=== PATIENT | male | born 1935 | race Caucasian/White ===

== ENCOUNTER → 2016-09-18 | Outpatient (REF) | payer MEDICARE, OTHER ==
[~2016-09-18] MED LIST: /LANS30GR; /LANS30GR OR; /TAMS4CA; /TAMS4CA OR; ACET50TAOT PO; ACET65TA OR; ALLO300T; ALLO300T OR; ASPI81TA7 PO; ASPI81TA85 PO; BACITAB3 PO; BIMA01SOL OU; CALCCHW12; CALCCHW12 OR; CITRTAB19 PO; CLEO150C PO; COLA100C2; FEXO180T58 PO; FINA5TAB2 PO; LANS30CA PO; MECL25TA2 OR; MEMA1TAB2 PO; MIRT15TA3 PO; MULTIVIT; MULTIVIT OR; NAME5TAB13 PO; PERC5TAB8; POTA2TAB2 PO; POTA75TA; POTA99TA PO; POTASSIUM GLUCONATE OR; PROS5TAB; PROS5TAB OR; RECLAST; REMERON OR; SIMB1SUS OU; SUSTENEX OR; VITA20008 PO; VITAMIN D; VITAMIN D-3 OR; VITMTA PO; XALATAN; ZYLO300T4 PO
[2016-09-18 16:56] LABS: BASO % 0.3 % (0.0-1.0); EOS # 0.1 K/mm3 (0.0-0.50); EOS % 1.5 % (0.0-3.0); LARGE UNSTAINED CELL # 0.2 K/mm3 (0.0-0.4); LYMPH # 1.2 K/mm3 (1.5-4.5); LYMPH % 20.1 % (24.0-44.0); MEAN CORPUSCULAR HEMOGLOBIN 30.7 pg (27.0-33.0); MEAN CORPUSCULAR HGB CONC 32.2 g/dl (32.0-36.5); MEAN CORPUSCULAR VOLUME 95.4 fl (80.0-96.0); MONO # 0.4 K/mm3 (0.0-0.8); NEUTROPHILS # 4.1 K/mm3 (1.8-7.7); NEUTROPHILS % 69.2 % (36.0-66.0); PLATELET COUNT, AUTOMATED 167 k/mm3 (150-450); RED CELL DISTRIBUTION WIDTH 13.6 % (11.5-14.5)
[2016-09-18 21:05] LABS: ALBUMIN 4.3 GM/DL (3.2-5.2); ALBUMIN/GLOBULIN RATIO 1.54 (1.00-1.93); BILIRUBIN,TOTAL 0.3 MG/DL (0.2-1.0); CALCIUM LEVEL 8.9 MG/DL (8.8-10.2); CREATININE FOR GFR 1.35 MG/DL (0.70-1.30); GLOMERULAR FILTRATION RATE 54.4 (>42); POTASSIUM SERUM 4.6 MEQ/L (3.5-5.1); THYROXINE (T4) 7.6 UG/DL (4.5-12.0); TOTAL PROTEIN 7.1 GM/DL (6.4-8.2); URIC ACID 3.6 MG/DL (3.5-7.2)
== END ==
LOC: M SFHCCLAY 09:26
PROVIDERS: ATTEND Family Medicine
DX: D64.9 Anemia, unspecified (principal); E55.9 Vitamin D deficiency, unspecified; M10.9 Gout, unspecified; E03.8 Other specified hypothyroidism
CPT/HCPCS: 80053; 82652; 83540; 84436; 84443; 84480; 84550; 85025; G0463

== ENCOUNTER → 2016-11-27 | Outpatient (REF) | payer MEDICARE, OTHER ==
[~2016-11-27] MED LIST changes: +ASPI1TAB15 PO; -ASPI81TA7 PO; +BACITAB PO; -BACITAB3 PO
[2016-11-27 19:06] LABS: MEAN CORPUSCULAR HEMOGLOBIN 31.7 pg (27.0-33.0); MEAN CORPUSCULAR HGB CONC 33.8 g/dl (32.0-36.5); MEAN CORPUSCULAR VOLUME 93.5 fl (80.0-96.0); RED CELL DISTRIBUTION WIDTH 13.7 % (11.5-14.5); WHITE BLOOD COUNT 6.2 K/mm3 (4.0-10.0)
[2016-11-27 19:16] LABS: ALBUMIN 3.7 GM/DL (3.2-5.2); ALBUMIN/GLOBULIN RATIO 1.19 (1.00-1.93); ALKALINE PHOSPHATASE 78 U/L (45-117); ALT/SGPT 24 U/L (12-78); ANION GAP 9 MEQ/L (8-16); AST/SGOT 23 U/L (15-37); BILIRUBIN,TOTAL 0.3 MG/DL (0.2-1.0); BLOOD UREA NITROGEN 28 MG/DL (7-18); CALCIUM LEVEL 8.8 MG/DL (8.8-10.2); CARBON DIOXIDE LEVEL 27 MEQ/L (21-32); CHLORIDE LEVEL 103 MEQ/L (98-107); CREATININE FOR GFR 1.21 MG/DL (0.70-1.30); GLOMERULAR FILTRATION RATE > 60.0 (>42); GLUCOSE, FASTING 100 MG/DL (83-110); POTASSIUM SERUM 4.3 MEQ/L (3.5-5.1); SODIUM LEVEL 139 MEQ/L (136-145); TOTAL PROTEIN 6.8 GM/DL (6.4-8.2)
== END ==
LOC: M SFHCCLAY 13:56
PROVIDERS: ATTEND Nurse Practitioner
DX: R53.83 Other fatigue (principal); E03.9 Hypothyroidism, unspecified
CPT/HCPCS: 80053; 84443; 85027; 93005; G0463

== ENCOUNTER → 2017-04-06 | Outpatient (CLI) | payer MEDICARE, OTHER ==
--- NOTE | 2017-04-06 09:48 | REP ---
PA and lateral chest three views two PA and single lateral views: Comparison is 01/10/2016. The patient has a history of right upper lobectomy, esophagectomy and gastric pull-through: There is volume loss in the right hemithorax as a consequence of these procedures. This is unchanged. There are numerous surgical clips in the right paramediastinal area and in the left hilus. These are unchanged. There are no acute infiltrates or effusions. Cardiac size is normal, unchanged. The sheldon, mediastinum, bony thorax are unchanged. 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 There is diffuse demineralization. Impression: Chronic stable findings as described. No new or acute cardiopulmonary findings. Signed by Chuck Moore MD 04/06/2017 09:40 A
== END ==
LOC: M SMT 09:09
PROVIDERS: ATTEND Internal Medicine Pulmonary Disease
DX: R93.8 Abnormal findings on diagnostic imaging of other specified body structures (principal)

== ENCOUNTER → 2017-11-06 | Outpatient (REF) | payer MEDICARE, OTHER ==
[2017-11-06 17:07] LABS: BASO % 0.6 % (0.0-1.0); EOS # 0.1 10^3/uL (0.0-0.50); EOS % 1.5 % (0.0-3.0); HEMATOCRIT 39.8 % (42.0-52.0); HEMOGLOBIN 12.8 g/dl (13.5-17.5); IMMATURE GRANULOCYTE % 0.7 % (0-3.0); LYMPH # 1.3 10^3/uL (1.5-4.5); LYMPH % 19.3 % (24.0-44.0); MEAN CORPUSCULAR HEMOGLOBIN 31.1 pg (27.0-33.0); MEAN CORPUSCULAR HGB CONC 32.2 g/dl (32.0-36.5); MEAN CORPUSCULAR VOLUME 96.6 fl (80.0-96.0); MONO # 0.5 10^3/uL (0.0-0.8); MONO % 7.8 % (0.0-5.0); NEUTROPHILS # 4.7 10^3/uL (1.8-7.7); NEUTROPHILS % 70.1 % (36.0-66.0); PLATELET COUNT, AUTOMATED 157 10^3/uL (150-450); RED BLOOD COUNT 4.12 10^6/uL (4.30-6.10); RED CELL DISTRIBUTION WIDTH 13.9 % (11.5-14.5); WHITE BLOOD COUNT 6.7 10^3/uL (4.0-10.0)
[2017-11-06 17:16] LABS: ALBUMIN 3.9 GM/DL (3.2-5.2); ALBUMIN/GLOBULIN RATIO 1.34 (1.00-1.93); ALKALINE PHOSPHATASE 72 U/L (45-117); ALT/SGPT 28 U/L (12-78); ANION GAP 8 MEQ/L (8-16); AST/SGOT 20 U/L (7-37); BILIRUBIN,TOTAL 0.4 MG/DL (0.2-1.0); BLOOD UREA NITROGEN 35 MG/DL (7-18); CALCIUM LEVEL 8.5 MG/DL (8.8-10.2); CARBON DIOXIDE LEVEL 26 MEQ/L (21-32); CHLORIDE LEVEL 107 MEQ/L (98-107); GLOMERULAR FILTRATION RATE 51.9 (>35); GLUCOSE, FASTING 97 MG/DL (70-100); IRON (FE) 100 UG/DL (65-175); POTASSIUM SERUM 4.8 MEQ/L (3.5-5.1); SODIUM LEVEL 141 MEQ/L (136-145); TOTAL PROTEIN 6.8 GM/DL (6.4-8.2); URIC ACID 2.8 MG/DL (3.5-7.2)
== END ==
LOC: M SFHCCLAY 10:56
DX: I47.1 Supraventricular tachycardia (principal); D64.9 Anemia, unspecified; M10.9 Gout, unspecified
CPT/HCPCS: 83540

== ENCOUNTER → 2018-04-02 | Outpatient (CLI) | payer MEDICARE, OTHER | LOC: M CLY 08:58 | DX: Z85.118 Personal history of other malignant neoplasm of bronchus and lung (principal) | CPT/HCPCS: 71046 ==

== ENCOUNTER → 2018-10-19 | Outpatient (CLI) | payer MEDICARE, OTHER ==
[~2018-10-19] MED LIST changes: -/TAMS4CA; -/TAMS4CA OR; +ACET500T15 PO; -ACET50TAOT PO; +FLOM0.4C39; +FLOM0.4C39 OR; -ZYLO300T4 PO; +ZYLO300T6 PO
--- NOTE | 2018-10-19 16:10 | REP ---
HISTORY: Dyspnea. COMPARISON: Multiple, the latest 04/02/2018. Once again, there are chronic lung field changes with fibrosis and postoperative changes along with chronic volume loss on the right, all stable. There may be a new developing opacity in the left mid lung zone which appears to be in the anterior segment of the left upper lobe as there is some increased density in the anterior retrosternal clear space seen on the lateral view. There is no change in the osseous structures. IMPRESSION: Possible acute change superimposed upon chronic change in the left lung as described above. Chest CT is warranted.
== END ==
LOC: M CLY 14:18
PROVIDERS: ATTEND Family Medicine
DX: R91.8 Other nonspecific abnormal finding of lung field (principal); R06.02 Shortness of breath; R53.83 Other fatigue; D64.9 Anemia, unspecified; N50.9 Disorder of male genital organs, unspecified
CPT/HCPCS: 71046; 80053; 83540; 84436; 84443; 84480; 85025; 86780; G0463

== ENCOUNTER → 2018-10-19 | Outpatient (REF) | payer MEDICARE, OTHER ==
[2018-10-20 11:33] LABS: BASO % 0.4 % (0.0-1.0); EOS # 0.1 10^3/uL (0.0-0.50); HEMATOCRIT 43.7 % (42.0-52.0); HEMOGLOBIN 13.8 g/dl (13.5-17.5); LYMPH # 1.3 10^3/uL (1.5-4.5); LYMPH % 13.6 % (24.0-44.0); MEAN CORPUSCULAR HEMOGLOBIN 30.8 pg (27.0-33.0); MEAN CORPUSCULAR HGB CONC 31.6 g/dl (32.0-36.5); MEAN CORPUSCULAR VOLUME 97.5 fl (80.0-96.0); MONO # 0.7 10^3/uL (0.0-0.8); MONO % 6.8 % (0.0-5.0); NEUTROPHILS # 7.4 10^3/uL (1.8-7.7); NEUTROPHILS % 77.6 % (36.0-66.0); PLATELET COUNT, AUTOMATED 267 10^3/uL (150-450); RED BLOOD COUNT 4.48 10^6/uL (4.30-6.10); WHITE BLOOD COUNT 9.6 10^3/uL (4.0-10.0)
[2018-10-20 11:51] LABS: ALBUMIN 3.8 GM/DL (3.2-5.2); ALT/SGPT 21 U/L (12-78); BILIRUBIN,TOTAL 0.4 MG/DL (0.2-1.0); BLOOD UREA NITROGEN 32 MG/DL (7-18); CALCIUM LEVEL 9.2 MG/DL (8.8-10.2); CARBON DIOXIDE LEVEL 30 MEQ/L (21-32); CHLORIDE LEVEL 103 MEQ/L (98-107); CREATININE FOR GFR 1.22 MG/DL (0.70-1.30); GLOMERULAR FILTRATION RATE > 60.0 (>35); GLUCOSE, FASTING 119 MG/DL (70-100); IRON (FE) 34 UG/DL (65-175); POTASSIUM SERUM 4.3 MEQ/L (3.5-5.1); SODIUM LEVEL 137 MEQ/L (136-145); THYROXINE (T4) 7.7 UG/DL (4.5-12.0); TOTAL PROTEIN 6.6 GM/DL (6.4-8.2)
[2018-10-20 12:17] LABS: TOTAL T3 57.3 NG/DL (60.0-181.0)
== END ==
LOC: M SFHCCLAY 14:06
PROVIDERS: ATTEND Family Medicine
DX: R06.02 Shortness of breath (principal); R53.83 Other fatigue; D64.9 Anemia, unspecified; N50.9 Disorder of male genital organs, unspecified

== ENCOUNTER → 2018-10-25 | Outpatient (CLI) | payer MEDICARE, OTHER ==
[~2018-10-25] MED LIST changes: +D200CAP2 PO; +ISOVUE-370 76% 100ML VIAL (Q9967) As Ordered ONE; +LEVO25TA5 PO; +LEVO50TA5 PO; +METO25TA4 PO; +METO37.5 PO; +REME15TA PO
--- NOTE | 2018-10-26 08:01 | REP ---
CT of the chest with IV contrast for follow-up of abnormal PA and lateral plain film study dated 10/19/2018. There is also a comparison chest CT dated 07/02/2011. On the comparison PA and lateral plain film study there was a new developing opacity in the left mid lung zone extending into the anterior left lung. The patient has a known right upper lobectomy and known esophagectomy with gastric pull-through. This is unchanged from the prior CT. On the prior CT. There is a hiatal hernia containing loops of transverse colon. This hiatal hernia has decreased in size. The there are numerous lung nodules bilaterally as a distinct interval change compatible with metastases. The largest lung nodules anterolaterally in the lungs, corresponding to the density on recent plain films. There is a [id number]-[id number] left pleural effusion as an interval change. On the previous CT there was a 3.8 cm cyst in the anterior mediastinum to the right of midline. This cyst measures 3.7 cm. There is bilateral hilar lymph node enlargement as an interval change. There is a a 1.6 cm enlarged aorticopulmonic window mediastinal lymph node as an interval change. There is an enlarged at 19 mm node suzanne-lateral to the heart on image 50. In the upper abdomen there is a 12 mm right adrenal nodule. Impression: Numerous new irregular lung nodules bilaterally compatible with metastases. New right adrenal nodule. New opyogcvd-yb-bvucs left pleural effusion. New bilateral hilar and mediastinal lymph node enlargement. Chronic postsurgical changes. Hiatal hernia containing loops of transverse colon, decreased in size. Electronically Signed by Chuck Moore MD 10/26/2018 07:52 A
== END ==
LOC: M RAD 17:22
PROVIDERS: ATTEND Family Medicine
DX: R91.8 Other nonspecific abnormal finding of lung field (principal); E27.9 Disorder of adrenal gland, unspecified; J90 Pleural effusion, not elsewhere classified; R59.0 Localized enlarged lymph nodes; K44.9 Diaphragmatic hernia without obstruction or gangrene
CPT/HCPCS: 71260; Q9967

== ENCOUNTER 2018-11-15 07:20 | Emergency (ER) | payer MEDICARE, OTHER ==
[~2018-11-15] VITALS: Ht 182.9 cm; Wt 84.1 kg
[~2018-11-15 07:20] MED LIST changes: -D200CAP2 PO; -ISOVUE-370 76% 100ML VIAL (Q9967) As Ordered ONE; -LEVO25TA5 PO; -LEVO50TA5 PO; -METO25TA4 PO; -METO37.5 PO; -REME15TA PO
[2018-11-15] MEDS ORDERED: IPRATROPIUM 0.5MG/ALBUTEROL 2.5MG INH SOL UD 3ML (DUONEB)(J7620) NEB ONE (07:30)
[2018-11-15] MEDS ORDERED: ALBUTEROL SULFATE 2.5 MG/0.5 ML INH NEB SOLN INH ONE (07:30)
[2018-11-15] MEDS ORDERED: methylPREDNISolone INJ 125 MG/2 ML VIAL (J2930) IV ONE (07:30)
[2018-11-15 07:45] LABS: ABG BASE EXCESS 1.9 (-2.0-2.0); ABG HCO3 26.9 MEQ/L (22.0-26.0); ABG O2 SATURATION 95.2 % (95.0-99.0); ABG PARTIAL PRESSURE CO2 43.4 mmHg (35.0-45.0); ABG STANDARD HCO3 26.1 MEQ/L (22.0-26.0); ABG TOTAL CO2 28.2 MEQ/L (23.0-31.0)
[2018-11-15 08:04] LABS: BASO % 0.2 % (0.0-1.0); EOS # 0.1 10^3/uL (0.0-0.50); EOS % 0.5 % (0.0-3.0); HEMATOCRIT 45.6 % (42.0-52.0); HEMOGLOBIN 14.9 g/dl (13.5-17.5); LYMPH # 0.7 10^3/uL (1.5-4.5); LYMPH % 5.6 % (24.0-44.0); MEAN CORPUSCULAR HGB CONC 32.7 g/dl (32.0-36.5); MEAN CORPUSCULAR VOLUME 94.8 fl (80.0-96.0); MONO # 0.8 10^3/uL (0.0-0.8); MONO % 6.4 % (0.0-5.0); NEUTROPHILS # 10.6 10^3/uL (1.8-7.7); NEUTROPHILS % 85.8 % (36.0-66.0); PLATELET COUNT, AUTOMATED 294 10^3/uL (150-450); RED BLOOD COUNT 4.81 10^6/uL (4.30-6.10); WHITE BLOOD COUNT 12.4 10^3/uL (4.0-10.0)
[2018-11-15] MEDS ORDERED: METO37.5 PO (08:06)
[2018-11-15] MEDS ORDERED: LEVO50TA5 PO (08:06)
[2018-11-15] MEDS ORDERED: D200CAP2 PO (08:06)
[2018-11-15] MEDS ORDERED: AZITHROMYCIN INJ 500 MG, VIAL MATE ADAPTER 1 EACH in D5W 250 ML IV ONE (08:30)
[2018-11-15] MEDS ORDERED: cefTRIAXone SOD 2 GM in D5W MINI-BAG PLUS 50 ML IV ONE (08:30)
[2018-11-15] MEDS ORDERED: ISOVUE-370 76% 100ML VIAL (Q9967) As Ordered ONE (08:37)
[2018-11-15 09:12] LABS: ALBUMIN 3.2 GM/DL (3.2-5.2); ALT/SGPT 24 U/L (12-78); BILIRUBIN,DIRECT 0.2 MG/DL (0.0-0.2); BILIRUBIN,TOTAL 0.5 MG/DL (0.2-1.0); CPK CREATINE PHOSPHOKINASE 99 U/L (39-308); MB/CK RELATIVE INDEX 6.46 (< OR =4); NT-PRO BNP 2355 PG/ML (<450); THYROXINE (T4) 8.8 UG/DL (4.5-12.0); TOTAL PROTEIN 6.4 GM/DL (6.4-8.2); TROPONIN I < 0.02 NG/ML (< 0.10)
--- NOTE | 2018-11-15 09:22 | REP ---
PORTABLE CHEST: AP portable view of the chest is performed and compared to prior study 10/19/2018. Cardiac silhouette is mildly prominent. There are diffuse increased interstitial markings, increased since prior study, possibly representing diffuse interstitial edema. Focal alveolar infiltrates are seen in the left mid and lower lung zones. I suspect a small left effusion as well. Gastric pole projects on the right inferiorly. Metallic clips and chronic pleural thickening is seen in the right apex. IMPRESSION: Diffuse increased interstitial markings, I suspect represents diffuse interstitial edema and CHF. There are focal alveolar infiltrates in the left lower lung zone. Small left effusion is suspected. Electronically Signed by Chuck Clement MD 11/16/2018 11:49 A
[2018-11-15] MEDS ORDERED: REME15TA PO (09:28)
[2018-11-15] MEDS ORDERED: LEVO25TA5 PO (09:28)
[2018-11-15] MEDS ORDERED: METO25TA4 PO (09:28)
[2018-11-15] MEDS ORDERED: FUROSEMIDE 20 MG/2 ML VIAL (J1940) IV ONE (09:30)
--- NOTE | 2018-11-15 09:34 | REP ---
CT ANGIOGRAM CHEST: TECHNIQUE: Axial contrast enhanced images from the thoracic inlet to the upper abdomen using 100 mL Isovue 370 intravenous contrast material with multiplanar reformations. COMPARISON: CT 10/25/2018 as well as other prior studies. There is no CT evidence of pulmonary embolism. The ascending thoracic aorta is ectatic with mild scattered atherosclerotic calcification. There is no aortic dissection. The heart does not appear to be significantly enlarged. The patient has had prior right upper lobectomy as well as a gastric pull-through procedure with esophagectomy. There is evidence of diffuse metastatic disease. Multiple subcutaneous nodules are seen, the largest visualized is in the left superolateral chest wall measuring approximately 1.4 cm in diameter. There is extensive diffuse mediastinal and hilar adenopathy. Multiple innumerable pulmonary nodules are seen bilaterally. There are diffuse bilateral interstitial infiltrates. There are mild patchy alveolar infiltrates scattered throughout the right lung, with a greater degree of alveolar infiltrates in the left upper and lower lobes. There is moderate left effusion. There is a small amount of loculated pleural fluid inferiorly and anteriorly on the right. There is a nodule in the left lobe of the liver measuring 1.4 cm in diameter consistent with metastasis. Bilateral adrenal nodules are also present representing metastatic disease, on the right measuring 2.1 cm and on the left at approximately 0.8 cm in maximum diameter. IMPRESSION: No CT evidence of pulmonary embolism or aortic dissection. Diffuse metastatic disease. Multiple subcutaneous nodules are present. There is extensive mediastinal and hilar adenopathy. Multiple bilateral pulmonary nodules are present. There are diffuse bilateral interstitial and alveolar infiltrates, left greater than right. There is a moderate left effusion. Metastatic lesions are also seen in the left lobe of the liver and bilateral adrenal glands. Electronically Signed by Chuck Clement MD 11/16/2018 11:50 A
[2018-11-15] MEDS: METOPROLOL TART 25 MG TABLET PO ONE ×2 (10:54→11:03)
[2018-11-15 11:00] VITALS: BP 131/82
[2018-11-15 11:03] VITALS: BP 131/82
--- NOTE | 2018-11-15 15:16 | ECGEPIP ---
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
--- NOTE | 2018-11-15 15:18 | ECGEPIP ---
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
--- NOTE | 2018-11-15 17:42 | CR.PDOC ---
General Date of Consultation: Nov 15, 2018 Consultation REASON FOR CONSULTATION/CHIEF COMPLAINT: . Shortness of breath HISTORY OF PRESENT ILLNESS: . 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 In the ER, the patient was noted to be hypoxic requiring 4 L of oxygen via nasal cannula. A CT scan of the chest revealed diffuse metastatic disease with multiple subcutaneous nodules present. There is also extensive medi astinal and hilar adenopathy noted. A moderate left-sided effusion was also noted. There are metastatic lesions noted in the left lobe of the liver and bilateral adrenal glands as well. These results were discussed at length with the patient and his Roxanna at the bedside. I did offer to admit the patient and undergo a workup of the metastatic disease and explore therapeutic options. However, the patient and his stated that they did not want any invasive measures or further treatment to work this up. They stated that they declined chemotherapy back in 2009 and certainly did not want to undergo any further investigation or treatment. They expressed interest in going home with hospice. I discussed the patient's options and risks, benefits with each decision. They have verbalized understanding of the same and would like to forego medical treatment and make the patient comfort measures only, and go home on hospice from the ER. A MOLST form was signed, dated, and placed in the chart to reflect these wishes. I discussed the case with Tracey Go of case management/social work, she will have a hospice medical field representative meet with Pete before they are discharged home from the ER to establish follow up. ALLERGIES: Please see below. HOME MEDICATIONS: Please see below. PAST MEDICAL HISTORY: As noted in HPI. PAST SURGICAL HISTORY: ESOPHAGUS REMOVAL (DR. HAMMOND) 2004 COLONSCOPY (DR. TRIPATHI )--ADENOMATOUS POLYP 2001 2001, 2004 LLBECTOMY R --SQUAMOUS CELL CA; DECLINED CHEMOTX (DR. FRITZ) 2009 BILATERAL CATARACT SURGERY ( DR. YA) [address] VALE 2010 TURP 04/07/14 UGI AND COLONOSCOPY .; TUBULAR ADENOMAS X2 09/27 RIGHT EYE CATARACT REMOVED 12/2015 COLONOSCOPY AND ENDOSCOPY 09/2016 FAMILY HISTORY: FATHER: 79 YRS, PROSTATE CANCER MOTHER: 56 YRS, UNKNOWN DAUGHTER(S): ALIVE, 1 DAUGHTER - GBS ON DISABILITY 2 DAUGHTER - LUNG INFECTION 2DAUGHTER(S) . SOCIAL HISTORY: For tobacco smoker. Denies any alcoholic or illicit drug use. REVIEW OF SYSTEMS: 10 point review of systems negative unless otherwise specified in HPI. PHYSICAL EXAMINATION: VITAL SIGNS: Please see below. GENERAL APPEARANCE: . Awake, alert, oriented. Cachectic and malnourished appearing HEENT: . Normocephalic, atraumatic RESPIRATORY: . Diminished breath sounds bilaterally CARDIOVASCULAR: . Normal rate, normal S1, S2 ABDOMEN: . Soft, nontender, nondistended SKIN: 2 x 2 cm Lesion noted along the right side of the scrotal area. Multiple skin nodules noted across the back bilaterally. LABORATORY DATA: Please see below. ASSESSMENT/PLAN: As noted above the patient presented with worsening shortness of breath, weakness, fatigue, and significant weight loss secondary. CT imaging in the ER was consistent with metastatic disease. The patient and his have decided to go home on hospice given the aforementioned results. They did not want to undergo any further medical treatment. Risks, benefits, and alternative options discussed at length. The patient and his have verbalized understanding of the same and would like to be discharged from the ER. I did get the patient in touch with Tracey Go and our social work/case management team, who have also gotten in touch with the Hospice team. They will be coordinating the patient's care upon discharge. A MOLST form has been signed, dated, and placed in the chart. Vital Signs/I&O Vital Signs Date Time Temp Pulse Resp B/P (MAP) Pulse Ox O2 Delivery O2 Flow Rate FiO2 11/15/18 11:50 82 94 11/15/18 11:03 131/82 11/15/18 09:35 Nasal Cannula 4.0 11/15/18 08:25 92 11/15/18 07:31 98.3 17 Laboratory Data Labs 24H Laboratory Tests 2 11/15/18 07:40: Blood Gas Bicarbonate Standard 26.1H, Arterial Blood pH 7.410, Arterial Blood Partial Pressure CO2 43.4, Arterial Blood Partial Pressure O2 78.0, Arterial Blood Total CO2 28.2, Arterial Blood HCO3 26.9H, Arterial Blood Base Excess 1.9, Arterial Blood Oxygen Saturation 95.2 11/15/18 07:48: Immature Granulocyte % (Auto) 1.5, White Blood Count 12.4H, Red Blood Count 4.81, Hemoglobin 14.9, Hematocrit 45.6, Mean Corpuscular Volume 94.8, Mean Corpuscular Hemoglobin 31.0, Mean Corpuscular Hemoglobin Concent 32.7, Red Cell Distribution Width 13.2, Platelet Count 294, Neutrophils (%) (Auto) 85.8H, Lymphocytes (%) (Auto) 5.6L, Monocytes (%) (Auto) 6.4H, Eosinophils (%) (Auto) 0.5, Basophils (%) (Auto) 0.2, Neutrophils # (Auto) 10.6H, Lymphocytes # (Auto) 0.7L, Monocytes # (Auto) 0.8, Eosinophils # (Auto) 0.1, Basophils # (Auto) 0.0, Nucleated Red Blood Cells % (auto) 0.0, Lactic Acid Level 1.5, Aspartate Amino Transf (AST/SGOT) 32, Alanine Aminotransferase (ALT/SGPT) 24, Alkaline Phosphatase 87, Total Bilirubin 0.5, Direct Bilirubin 0.2, Total Creatine Kinase 99, Creatine Kinase MB 6.0H, Creatine Kinase MB Relative Index 6.46H, Troponin I < 0.02, ZJ-Yhu-J-Type Natriuretic Peptide 2355H, Total Protein 6.4, Albumin 3.2, Albumin/Globulin Ratio 1.00, Thyroid Stimulating Hormone (TSH) 3.080, Thyroxine (T4) 8.8 11/15/18 08:22: POC Glucose (Misc Panel) 101, POC Sodium (Misc Panel) 134L, POC Potassium (Misc Panel) 3.8, POC Chloride (Misc Panel) 92L, POC Total CO2 (Misc Panel) 28.0H, POC Blood Urea Nitrogen (Misc Panel 20, POC Ionized Calcium (Misc Panel) 4.4L, POC Creatinine (Misc Panel) 0.7, POC Hematocrit (Misc Panel) 46.0 CBC/BMP Laboratory Tests 11/15/18 07:48 Red Blood Count 4.81, Mean Corpuscular Volume 94.8, Mean Corpuscular Hemoglobin 31.0, Mean Corpuscular Hemoglobin Concent 32.7, Red Cell Distribution Width 13.2, Neutrophils (%) (Auto) 85.8 H, Lymphocytes (%) (Auto) 5.6 L, Monocytes (%) (Auto) 6.4 H, Eosinophils (%) (Auto) 0.5, Basophils (%) (Auto) 0.2, Neutrophils # (Auto) 10.6 H, Lymphocytes # (Auto) 0.7 L, Monocytes # (Auto) 0.8, Eosinophils # (Auto) 0.1, Basophils # (Auto) 0.0 Microbiology Microbiology 11/15/18 Blood Culture, Received Pending 11/15/18 Blood Culture, Received Pending 11/15/18 Respiratory Virus Panel (PCR) ([facility]) - Final, Complete Allergies Coded Allergies: loperamide (Verified Allergy, Unknown, elevated LFT, 11/15/18) oxaprozin (Verified Allergy, Unknown, 11/15/18) mannitol (Verified Adverse Reaction, Intermediate, MUSCLE ACHES, 11/15/18) water for injection,sterile (Verified Adverse Reaction, Intermediate, MUSCLE ACHES, 11/15/18) donepezil (Verified Adverse Reaction, Unknown, headache, 11/15/18) tramadol (Verified Adverse Reaction, Unknown, gi upset, 11/15/18) zoledronic acid (Verified Adverse Reaction, Unknown, muscle aches, 11/15/18) Home Medications Scheduled Acetaminophen (Acetaminophen) 500 Mg Tab, 1,000 MG PO QHS, (Reported) Allopurinol (Zyloprim) 300 Mg Tab, 300 MG PO DAILY, (Reported) Bimatoprost (Lumigan) 50 Drop/2.5 Ml Tasneem, 1 DROP OU QHS, (Reported) Cholecalciferol (Vitamin D3) (Vitamin D3) 2,000 Unit Capsule, 2,000 UNITS PO QHS, (Reported) Finasteride (Finasteride) 5 Mg Tab, 5 MG PO QHS, (Reported) Lansoprazole (Lansoprazole) 30 Mg Cap, 30 MG PO QHS, (Reported) Levothyroxine Sodium (Levothyroxine Sodium) 25 Mcg Tablet, 25 MCG PO DAILY, (Re ported) Memantine HCl (Memantine HCl) 10 Mg Tab, 10 MG PO BID, (Reported) Metoprolol Tartrate (Metoprolol Tartrate) 25 Mg Tablet, 25 MG PO DAILY, (Reported) Mirtazapine (Remeron) 15 Mg Tablet, 15 MG PO QHS, (Reported) Multivitamins (Thera M Plus Tablet) 1 Tab Tab, 1 TAB PO DAILY, (Reported) JAMAL LR MD Nov 15, 2018 17:42
== END 2018-11-15 12:22 | disposition home or self-care (01) ==
LOC: M ED 07:20 → EDBD 07:20 → M ED 12:22
DX: C34.90 Malignant neoplasm of unspecified part of unspecified bronchus or lung (principal); R06.00 Dyspnea, unspecified; I50.9 Heart failure, unspecified; I48.92 Unspecified atrial flutter; R09.02 Hypoxemia; J18.9 Pneumonia, unspecified organism; R00.0 Tachycardia, unspecified; I45.10 Unspecified right bundle-branch block; I23.1 Atrial septal defect as current complication following acute myocardial infarction; Z87.891 Personal history of nicotine dependence; Z79.899 Other long term (current) drug therapy; Z88.5 Allergy status to narcotic agent; Z88.8 Allergy status to other drugs, medicaments and biological substances
CPT/HCPCS: 36600; 71045; 71275; 80047; 80076; 82550; 82553; 82803; 83605; 83880; 84436; 84443; 84484; 85025; 87040; 87486; 87581; 87633; 87798; 93005; 93041; 94640; 96365; 96375; 99285; J0456; J0696; J1940; J2930; Q9967